=== PATIENT | female | born 1965 | race Caucasian/White ===

== ENCOUNTER 2017-03-01 13:15 | Emergency (ER) | payer OTHER ==
[2017-03-01 13:16] VITALS: BMI 33.3
--- NOTE | 2017-03-01 14:40 | RAD ---
HISTORY: COUGH/CONGESTION COMPARISON: 10/20/2012 TECHNIQUE: Chest PA and lateral FINDINGS: LUNGS: No active pulmonary disease. PLEURA: No significant pleural effusion identified. No pneumothorax apparent. CARDIOVASCULAR: Normal. OSSEOUS STRUCTURES: No significant abnormalities. VISUALIZED UPPER ABDOMEN: Normal. OTHER FINDINGS: None. IMPRESSION: No active disease.
--- NOTE | 2017-03-01 15:28 | C.PDOC ---
History Of Present Illness 52 y/o female presents to the ED with complains of cough, congestion with yellow sputum. Pt has chronic back pain and due to constant sneezing and coughing back pain is worse. Denies fever, chills, vomiting, weakness, numbness or any other complaints. Time Seen by Provider: 03/01/17 13:54 Chief Complaint (Nursing): Back Pain History Per: Patient History/Exam Limitations: no limitations Onset/Duration Of Symptoms: Days Current Symptoms Are (Timing): Still Present Quality Of Discomfort: "Pain" Severity: Moderate Previous Symptoms: Back Pain Associated Symptoms: None Recent travel outside of the [place]: No Past Medical History Reviewed: Historical Data, Nursing Documentation, Vital Signs Vital Signs: Last Vital Signs Temp 98.3 F 03/01/17 16:12 Pulse 83 03/01/17 16:12 Resp 18 03/01/17 16:12 BP 127/66 03/01/17 16:12 Pulse Ox 96 03/01/17 16:12 - Medical History PMH: Asthma, Back Problems, Diabetes, Pancreatitis Denies: Chronic Kidney Disease - [facility] Procedures DRAINAGE OF RIGHT BREAST, OPEN APPROACH (06/15/16) Family History: States: Unknown Family Hx - Social History Hx Tobacco Use: Yes Hx Alcohol Use: No Hx Substance Use: No - Immunization History Hx Tetanus Toxoid Vaccination: No Hx Influenza Vaccination: No Hx Pneumococcal Vaccination: No Review Of Systems Except As Marked, All Systems Reviewed And Found Negative. Constitutional: Negative for: Fever, Chills ENT: Positive for: Nose Congestion Respiratory: Positive for: Cough Musculoskeletal: Positive for: Back Pain Neurological: Negative for: Weakness, Numbness Physical Exam - Physical Exam Appears: Non-toxic, No Acute Distress Skin: Warm, Dry, No Rash Head: Atraumatic, Normacephalic Ear(s): Bilateral: Normal Nose: Normal Throat: Normal, No Erythema Neck: Normal, Normal ROM, Supple Chest: Symmetrical Cardiovascular: Rhythm Regular, No Murmur Respiratory: No Rales, No Rhonchi, Wheezing (diffuse expiratory) Back: Normal Inspection Extremity: Bilateral: Atraumatic Neurological/Psych: Oriented x3, Normal Motor, Normal Sensation ED Course And Treatment O2 Sat by Pulse Oximetry: 97 (room air) Pulse Ox Interpretation: Normal - Other Rad CXR X-Ray: Viewed By Me, Read By Radiologist Interpretation: Accession No. : [id number]. Patient Name / ID : KATALINA MAC / [id number]. Exam Date : 03/01/2017 14:09:12 ( Approved ). Study Comment : Sex / Age : F / 52Y. Creator : Austin Matta MD. Dictator : Austin Matta MD. Diabetologist : Ironing Machine Operator : Austin Matta MD. Approver2 : Report Date : 03/01/2017 14:38:39. My Comment : . HISTORY: COUGH/ CONGESTION. COMPARISON: 10/20/2012. TECHNIQUE: Chest PA and lateral. FINDINGS: LUNGS: No active pulmonary disease. PLEURA: No significant pleural effusion identified. No pneumothorax apparent. CARDIOVASCULAR: Normal. OSSEOUS STRUCTURES: No significant abnormalities. VISUALIZED UPPER ABDOMEN: Normal. OTHER FINDINGS: None. IMPRESSION: No active disease. Progress Note: CXR negative. Gave zithromax and toradol IM. On reassessment, patient is resting comfortably with no wheezing, chest pain, or retractions. Oxygen saturation and breath sounds have improved. Patient is alert and oriented x 3. Patient was advised to follow up with physician/clinic in 1-2 days and return to ED if symptoms worsen or persist. Disposition - Disposition Referrals: [facility] [Outside] [facility] at [facility] [Outside] Disposition: HOME/ ROUTINE Disposition Time: 15:48 Condition: STABLE Additional Instructions: Follow up with your PMD within 1-2 days. Return to ED if feel worse. Prescriptions: Brompheniramine/Pseudoephed/Dm [Bromfed Dm Cough 118 ml] 10 ml PO Q4 #300 ml Fluticasone Nasal [Flonase] 1 spr NS BID #1 spr oxyCODONE/Acetaminophen [Percocet 5/325 mg Tab] 1 tab PO QID PRN #20 tab PRN Reason: Pain Azithromycin [Zithromax] 250 mg PO DAILY #4 tab Instructions: Acute Bronchitis (ED), Back Pain (ED) Print Language: SRI LANKAN - Clinical Impression Clinical Impression: Low back pain, Bronchitis - PA / PERSONAL BANKING ASSISTANT / Resident Statement MD/DO has reviewed & agrees with the documentation as recorded. - Scribe Statement The provider has reviewed the documentation as recorded by the Scribe Nate Mendoza All medical record entries made by the Scribe were at my direction and personally dictated by me. I have reviewed the chart and agree that the record accurately reflects my personal performance of the history, physical exam, medical decision making, and the department course for this patient. I have also personally directed, reviewed, and agree with the discharge instructions and disposition.
[2017-03-01 16:14] VITALS: BP 127/66; PULSE 83; RESP 18; TEMP 98.3
[2017-03-01 22:55] VITALS: O2SAT 97
== END 2017-03-01 16:14 | disposition home or self-care (01) ==
LOC: C.ER 13:15
DX: M54.5 Low back pain (principal); J40 Bronchitis, not specified as acute or chronic
CPT/HCPCS: 71020; 96372; 99283; J1885

== ENCOUNTER 2017-05-01 19:22 | Emergency (ER) | payer OTHER ==
[2017-05-01 19:22] VITALS: BMI 33.3
[2017-05-01 19:48] VITALS: BP 121/85; PULSE 82; RESP 17; TEMP 98.4; O2SAT 98
--- NOTE | 2017-05-01 20:40 | C.PDOC ---
History Of Present Illness 52 year old female who presents to the ER with a h/o of chronic back pain c/o of exacerbation of same pain. Patient states she takes advil and aleve with no relief to symptoms; denies recent trauma, weakness, numbness, incontinence, dysuria, or hematuria. Patient is also requesting a refill of her metformin, last time taken was 4 days ago. Time Seen by Provider: 05/01/17 19:52 Chief Complaint (Nursing): Back Pain History Per: Patient History/Exam Limitations: no limitations Onset/Duration Of Symptoms: Days Current Symptoms Are (Timing): Still Present Quality Of Discomfort: Unable To Describe Previous Symptoms: Back Pain, Chronic Pain Associated Symptoms: None Recent travel outside of the [place]: No Past Medical History Reviewed: Historical Data, Nursing Documentation, Vital Signs Vital Signs: Last Vital Signs Temp 98.4 F 05/01/17 19:41 Pulse 82 05/01/17 19:41 Resp 17 05/01/17 19:41 BP 121/85 05/01/17 19:41 Pulse Ox 98 05/01/17 21:21 - Medical History PMH: Asthma, Back Problems, Diabetes, Pancreatitis Surgical History: No Surg Hx - [facility] Procedures DRAINAGE OF RIGHT BREAST, OPEN APPROACH (06/15/16) Family History: States: Unknown Family Hx - Social History Hx Tobacco Use: Yes Hx Alcohol Use: No Hx Substance Use: No - Immunization History Hx Tetanus Toxoid Vaccination: No Hx Influenza Vaccination: No Hx Pneumococcal Vaccination: No Review Of Systems Genitourinary: Negative for: Dysuria, Incontinence, Hematuria Musculoskeletal: Positive for: Back Pain Neurological: Negative for: Weakness, Numbness Physical Exam - Physical Exam Appears: Non-toxic Skin: Normal Color, Warm, Dry Head: Atraumatic, Normacephalic Eye(s): bilateral: Normal Inspection, EOMI Oral Mucosa: Moist Back: No Vertebral Tenderness, Paraspinal Tenderness (Lumbar/Thoracic diffusely) Neurological/Psych: Oriented x3, Normal Speech, Normal Cognition Gait: Steady ED Course And Treatment O2 Sat by Pulse Oximetry: 98 (Room air) Pulse Ox Interpretation: Normal Progress Note: Toradol IM and metformin PO ordered. On reassessment, patient is resting comfortably, with improvement of back pain. Patient remains afebrile, with no bony tenderness, extremity numbness or weakness, or abdominal pain. Patient is ambulatory in the emergency department with no signs of discomfort. Patient was advised to follow up with PMD in 1-2 days. Disposition - Disposition Referrals: [facility] at [facility] [Outside] Disposition: HOME/ ROUTINE Disposition Time: 20:38 Condition: STABLE Additional Instructions: Please follow up in clinic Return to ER if worse Prescriptions: Cyclobenzaprine [Cyclobenzaprine HCl] 10 mg PO HS #14 tab Ibuprofen [Motrin] 600 mg PO Q6H #30 tab Metformin HCl [Glucophage] 1,000 mg PO DAILY #10 tablet Instructions: Chronic Back Pain (ED) - Clinical Impression Clinical Impression: Chronic back pain, Encounter for medication review - Scribe Statement The provider has reviewed the documentation as recorded by the Scribe Lucas Payne All medical record entries made by the Scribe were at my direction and personally dictated by me. I have reviewed the chart and agree that the record accurately reflects my personal performance of the history, physical exam, medical decision making, and the department course for this patient. I have also personally directed, reviewed, and agree with the discharge instructions and disposition.
== END 2017-05-01 21:00 | disposition home or self-care (01) ==
LOC: C.ER 19:22 → SUPCPDRO 19:22 → C.ER 21:00
DX: M54.9 Dorsalgia, unspecified (principal); G89.29 Other chronic pain; E11.9 Type 2 diabetes mellitus without complications
CPT/HCPCS: 82948; 96372; 99283; J1885

== ENCOUNTER 2017-06-28 21:32 | Emergency (ER) | payer SELFPAY ==
[2017-06-28 21:33] VITALS: BMI 33.3
[2017-06-28 21:49] VITALS: BP 120/81; PULSE 90; TEMP 98.1; O2SAT 98
--- NOTE | 2017-06-28 21:58 | C.PDOC ---
History Of Present Illness 52 year old female who presents to the ER with history of chronic back pain complains of same typical back pain. Patient states she takes Advil with no relief ofsymptoms. Denies recent trauma, weakness, numbness, incontinence, dysuria, or hematuria. Patient is also requesting a refill of her metformin, last time taken was 3 days ago. Patient also reports cough and congestion today. Time Seen by Provider: 06/28/17 22:06 Chief Complaint (Nursing): Back Pain History Per: Patient History/Exam Limitations: no limitations Onset/Duration Of Symptoms: Days, Persistent Current Symptoms Are (Timing): Still Present Quality Of Discomfort: "Pain" Severity: Mild Previous Symptoms: Back Pain Associated Symptoms: denies: New Weakness, New Numbness Recent travel outside of the [place]: No Additional History Per: Patient Past Medical History Reviewed: Historical Data, Nursing Documentation, Vital Signs Vital Signs: Last Vital Signs Temp 98.1 F 06/28/17 21:44 Pulse 90 06/28/17 21:44 Resp 18 06/28/17 21:44 BP 120/81 06/28/17 21:44 Pulse Ox 98 06/28/17 22:10 - Medical History PMH: Asthma, Back Problems, Diabetes, Pancreatitis Denies: Chronic Kidney Disease - [facility] Procedures DRAINAGE OF RIGHT BREAST, OPEN APPROACH (06/15/16) Family History: States: Unknown Family Hx - Social History Hx Tobacco Use: Yes Hx Alcohol Use: No Hx Substance Use: No - Immunization History Hx Tetanus Toxoid Vaccination: No Hx Influenza Vaccination: No Hx Pneumococcal Vaccination: No Review Of Systems Except As Marked, All Systems Reviewed And Found Negative. Cardiovascular: Negative for: Chest Pain Respiratory: Positive for: Cough. Negative for: Shortness of Breath Gastrointestinal: Negative for: Abdominal Pain Genitourinary: Negative for: Dysuria, Incontinence, Hematuria Musculoskeletal: Positive for: Back Pain (Chronic) Neurological: Negative for: Weakness, Numbness, Headache, Dizziness Physical Exam - Physical Exam Additional Physical Exam Comments: Appears: Well Appearing, Non-toxic, No Acute Distress Skin: Warm, Dry, No Rash Head: Atraumatic, Normacephalic Eye(s): bilateral: Normal Inspection Oral Mucosa: Moist Neck: Normal ROM Chest: Symmetrical Cardiovascular: Rhythm Regular, No Murmur Respiratory: Normal Breath Sounds, No Rales, No Rhonchi, No Wheezing Back: normal inspection (no rash, no swelling), mild paralumbar tenderness, no vertebral tenderness, no pain with straight leg raise Extremity: Bilateral: Atraumatic, Normal Color and Temperature, Normal ROM Neurological/Psych: Oriented x3, Normal Speech Gait: Steady ED Course And Treatment O2 Sat by Pulse Oximetry: 98 (RA) Pulse Ox Interpretation: Normal Medical Decision Making Medical Decision Making: Impression: * chronic back pain Plans: * Toradol * glucOPHAGE Progress: patient has been seen in ED multiple times for back pain and medication refill. I explain to patient she needs to follow up in the clinic and cannot keep coming to ER for medication refill. Patient verbalized understanding. Patient remains afebrile, with no bony tenderness, extremity numbness or weakness, or abdominal pain. Patient is ambulatory in the emergency department with no signs of discomfort. Patient was advised to follow up with physician/ clinic in 1-2 days. Disposition Counseled Patient/Family Regarding: Need For Followup - Disposition Referrals: [facility] [Outside] Disposition: HOME/ ROUTINE Disposition Time: 21:58 Condition: STABLE Additional Instructions: Vaya a moore mdico o la clnica en 2-5 ivveros sin falta, para mas evaluacin. Ruth los medicamentos mishel indicado. Volver a la lesly de emergencia en cualquier momento si los sntomas persisten o empeoran. Prescriptions: Cyclobenzaprine [Cyclobenzaprine HCl] 10 mg PO TID #21 tab MetFORMIN [glucoPHAGE] 1,000 mg PO BID #20 tab Naproxen [Naprosyn] 1 tab PO BID PRN #25 tab PRN Reason: Pain Instructions: Back Pain (ED), Medicine Refill (ED) Forms: [employer] (Yoruba) Print Language: SWEDISH - POA Present On Arrival: None - Clinical Impression Clinical Impression: Thoracic back pain, Low back pain, Medicine refill - Scribe Statement The provider has reviewed the documentation as recorded by the Scribney gates All medical record entries made by the Scribe were at my direction and personally dictated by me. I have reviewed the chart and agree that the record accurately reflects my personal performance of the history, physical exam, medical decision making, and the department course for this patient. I have also personally directed, reviewed, and agree with the discharge instructions and disposition.
[2017-06-28 22:30] VITALS: RESP 20
== END 2017-06-28 22:29 | disposition home or self-care (01) ==
LOC: C.ER 21:32
DX: M54.6 Pain in thoracic spine (principal); M54.5 Low back pain; Z76.0 Encounter for issue of repeat prescription; E11.9 Type 2 diabetes mellitus without complications
CPT/HCPCS: 96372; 99283; J1885

== ENCOUNTER 2018-01-06 19:32 | Emergency (ER) | payer SELFPAY ==
[2018-01-06 19:32] VITALS: BMI 33.3
[2018-01-06 19:47] VITALS: BP 112/80; PULSE 100; RESP 18; TEMP 97.6; O2SAT 100
--- NOTE | 2018-01-06 20:08 | C.PDOC ---
History Of Present Illness 52 year old female presents to the emergency department with a past medical history of chronic back pain, complaining of exacerbation of back pain after doing house chores yesterday. Patient reports the pain is located at her lower back, for which she took Motrin which provided minimal relief. 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) Past Medical History Reviewed: Historical Data, Nursing Documentation, Vital Signs Vital Signs: Last Vital Signs Temp 97.6 F 01/06/18 19:41 Pulse 100 H 01/06/18 19:41 Resp 18 01/06/18 19:41 BP 112/80 01/06/18 19:41 Pulse Ox 100 01/06/18 21:20 - Medical History PMH: Asthma, Back Problems, Diabetes, Pancreatitis Denies: Chronic Kidney Disease Surgical History: No Surg Hx - [facility] Procedures DRAINAGE OF RIGHT BREAST, OPEN APPROACH (06/15/16) Family History: States: No Known Family Hx - Social History Hx Tobacco Use: Yes Hx Alcohol Use: No Hx Substance Use: No - Immunization History Hx Tetanus Toxoid Vaccination: No Hx Influenza Vaccination: No Hx Pneumococcal Vaccination: No Review Of Systems Except As Marked, All Systems Reviewed And Found Negative. Genitourinary: Negative for: Dysuria Musculoskeletal: Positive for: Back Pain Neurological: Negative for: Weakness, Numbness Physical Exam - Physical Exam Appears: Well, Non-toxic Skin: Normal Color Head: Atraumatic, Normacephalic Eye(s): bilateral: Normal Inspection Ear(s): Bilateral: Normal Neck: Normal, Supple Respiratory: Normal Breath Sounds Gastrointestinal/Abdominal: Normal Exam, Soft, No Tenderness Back: No CVA Tenderness, No Vertebral Tenderness, Other (lumbar tenderness) Extremity: Normal ROM Extremity: Bilateral: Other (straight leg raises negative) Neurological/Psych: Oriented x3, Normal Speech, Normal Cognition, Normal Motor, Normal Sensation Gait: Steady ED Course And Treatment O2 Sat by Pulse Oximetry: 100 (RA) Pulse Ox Interpretation: Normal Progress Note: Patient administered Toradol 30mg IM and Flexeril 10mg PO, with some improvement of pain noticed. Disposition Counseled Patient/Family Regarding: Diagnosis, Need For Followup, Rx Given - Disposition Referrals: [facility] [Outside] Disposition: HOME/ ROUTINE Disposition Time: 20:08 Condition: STABLE Additional Instructions: Please follw up in clinic or with PMD continue motrin at home Take muscle relaxer as prescribed Return to ER if worse Prescriptions: Cyclobenzaprine [Cyclobenzaprine HCl] 10 mg PO HS #10 tab Ibuprofen [Motrin] 600 mg PO Q6H #20 tab Instructions: Low Back Pain (DC) Forms: [employer] (Polish) - Clinical Impression Clinical Impression: Back pain, chronic, Muscle strain - PA / FINANCING ANALYST / Resident Statement MD/DO has reviewed & agrees with the documentation as recorded. - Scribe Statement The provider has reviewed the documentation as recorded by the Scribe (Gregg Doll) All medical record entries made by the Scribe were at my direction and personally dictated by me. I have reviewed the chart and agree that the record accurately reflects my personal performance of the history, physical exam, medical decision making, and the department course for this patient. I have also personally directed, reviewed, and agree with the discharge instructions and disposition.
== END 2018-01-06 20:25 | disposition home or self-care (01) ==
LOC: C.ER 19:32
DX: S39.012A Strain of muscle, fascia and tendon of lower back, initial encounter (principal); X50.0XXA Overexertion from strenuous movement or load, initial encounter; Y93.E9 Activity, other interior property and clothing maintenance; Y92.009 Unspecified place in unspecified non-institutional (private) residence as the place of occurrence of the external cause
CPT/HCPCS: 96372; 99283; J1885

== ENCOUNTER 2018-03-01 11:12 | Emergency (ER) | payer OTHER ==
[2018-03-01 11:12] VITALS: BMI 33.3
[2018-03-01 12:14] LABS: HCG,QUALITATIVE URINE NEGATIVE (NEGATIVE)
[2018-03-01 12:23] LABS: SQUAMOUS EPITHIAL 5 /hpf (0-5); URINE BILIRUBIN NEGATIVE (NEGATIVE); URINE BLOOD NEGATIVE (NEGATIVE); URINE CLARITY Hazy (Clear); URINE COLOR Yellow (YELLOW); URINE GLUCOSE (UA) 3+ mg/dL (Normal); URINE LEUKOCYTE ESTERASE NEG Leu/uL (Negative); URINE PROTEIN NEGATIVE (NEGATIVE); URINE UROBILINOGEN NORMAL mg/dL (0.2-1.0)
[2018-03-01] MEDS ORDERED: Sodium Chloride 0.9% 1,000 ML IV ONE (12:55)
[2018-03-01] MEDS ORDERED: (Novolin R) Insulin Human Regular 100 units/ml vial IV STA (12:56)
[2018-03-01] MEDS ORDERED: (Novolin R) Insulin Human Regular 100 units/ml vial ONE (13:08)
[2018-03-01] MEDS ORDERED: Sodium Chloride 0.9% 1,000 ML ONE (13:08)
[2018-03-01 13:34] LABS: BASO % 0.4 % (0.0-2.0); EOS # 0.1 K/uL (0.0-0.7); EOS % 1.4 % (0.0-4.0); HEMOGLOBIN 14.7 g/dL (11.0-16.0); LYMPH # 4.3 K/uL (1.0-4.3); LYMPH % 47.5 % (20.0-40.0); MEAN CELL VOLUME 86.6 fL (81.0-99.0); MEAN CORPUSCULAR HEMOGLOBIN 30.5 pg (27.0-31.0); MEAN CORPUSCULAR HGB CONC 35.3 g/dL (33.0-37.0); MEAN PLATELET VOLUME 7.9 fL (7.2-11.7); MONO # 0.6 K/uL (0.0-0.8); MONO % 6.4 % (0.0-10.0); NEUT # 4.1 K/uL (1.8-7.0); NEUT % 44.3 % (50.0-75.0); RBC 4.8 Mil/uL (3.80-5.20); RED CELL DISTRIBUTION WIDTH 13.8 % (11.5-14.5); WHITE BLOOD COUNT 9.2 K/uL (4.8-10.8)
[2018-03-01 13:50] LABS: ALB/GLOB RATIO 1.2 (1.0-2.1); ALBUMIN 3.8 g/dL (3.5-5.0); ALT/SGPT 23 U/L (9-52); AST/SGOT 18 U/L (14-36); BLOOD UREA NITROGEN 13 mg/dL (7-17); CALCIUM 9.6 mg/dl (8.6-10.4); GFR AFRICAN-AMERICAN > 60; GFR NON-AFRICAN AMERICAN > 60; LIPASE 436 U/L (23-300)
[2018-03-01 14:24] VITALS: BP 113/75; PULSE 77; RESP 18; TEMP 98.9
[2018-03-01 14:27] VITALS: O2SAT 98
--- NOTE | 2018-03-01 14:27 | C.PDOC ---
History Of Present Illness 53 y/o female presents to the ED complaining of chronic low back pain, worsening over the past 4 days. Patient has many prior presentations to this ED for the same. Also complaining of crampy lower abdominal discomfort. Patient states she ran out of her glyburide and metformin, last doses yesterday. She notes her average finger stick at home is around 250. Also complains of constipation. Time Seen by Provider: 03/01/18 12:42 Chief Complaint (Nursing): Female Genitourinary History Per: Patient History/Exam Limitations: no limitations Onset/Duration Of Symptoms: Days Current Symptoms Are (Timing): Still Present Past Medical History Reviewed: Historical Data, Nursing Documentation, Vital Signs Vital Signs: Last Vital Signs Temp 98.9 F 03/01/18 14:15 Pulse 77 03/01/18 14:15 Resp 18 03/01/18 14:15 BP 113/75 03/01/18 14:15 Pulse Ox 98 03/01/18 14:35 - Medical History PMH: Asthma, Back Problems, Diabetes, Pancreatitis Denies: Chronic Kidney Disease - [facility] Procedures DRAINAGE OF RIGHT BREAST, OPEN APPROACH (06/15/16) Family History: States: Unknown Family Hx - Social History Hx Tobacco Use: Yes Hx Alcohol Use: No Hx Substance Use: No - Immunization History Hx Tetanus Toxoid Vaccination: No Hx Influenza Vaccination: No Hx Pneumococcal Vaccination: No Review Of Systems Except As Marked, All Systems Reviewed And Found Negative. Gastrointestinal: Positive for: Abdominal Pain, Constipation Genitourinary: Negative for: Dysuria, Frequency, Hematuria Musculoskeletal: Positive for: Back Pain Neurological: Negative for: Weakness, Numbness Physical Exam - Physical Exam Appears: Non-toxic, No Acute Distress, Other (Obese female) Skin: Normal Color, Warm, Dry Head: Atraumatic, Normacephalic Eye(s): bilateral: Normal Inspection, PERRL, EOMI Oral Mucosa: Moist Cardiovascular: Rhythm Regular, No Murmur Respiratory: Normal Breath Sounds, No Rales, No Rhonchi, No Wheezing Gastrointestinal/Abdominal: Bowel Sounds (Lower abdomen dull to percussion), Soft, No Tenderness (to epigastrium) Extremity: Bilateral: Atraumatic, Normal Color And Temperature, Normal ROM Neurological/Psych: Oriented x3, Normal Speech, Other (No focal deficits) ED Course And Treatment - Laboratory Results Result Diagrams: 03/01/18 13:19 03/01/18 13:19 Lab Interpretation: Normal (lipase 436, A1C 9.8 H) O2 Sat by Pulse Oximetry: 98 (RA) Pulse Ox Interpretation: Normal - Radiology CXR: Interpreted by Me CXR Interpretation: Yes: No Acute Disease - Other Rad abd x 2 X-Ray: Interpreted by Me (+FOS) Progress Note: toradol, IVF Reevaluation Time: 14:30 Reassessment Condition: Improved Medical Decision Making Medical Decision Making: moderatly well controlled DM, A1C 9.8 H (avg glu approx 235) mild chronic pancreatitis, lipase 435, no epigastric pain, eating and drinking well no adm necessary med refill refill and increase glyburide XR from 2.5-10 mg daily Refill metformin 1000 mg daily. crampy lower belly discomfort abd x 3 views, +FOS constipation prob related to uncontrolled DM and poor diet. laxatives educated. Disposition Doctor Will See Patient In The: Office Counseled Patient/Family Regarding: Studies Performed, Diagnosis - Disposition Referrals: [facility] [Outside] [facility] [Outside] [facility] [Outside] Disposition: HOME/ ROUTINE Disposition Time: 14:32 Condition: GOOD Additional Instructions: Estrenemiento: shaheen un purgante ahora jaclyn botella de Citr[employer] de Magnesio entero re-evalua moore molestia del abdomen despues de usar el kimberley 2-3 veces repita mishel necessario Cambios de dieta y ejercisio Diabetes: Hgb A1C 9.8 (promedio de glucosa de 235) muy justin. Pancreatitis Chronico: Cambios de dieta Dolor del espalda bolsas de HIELO 1/2 hora cada hora. NunCA nada caliente! sigue Ibuprofeno 400-600 mg cada 6 horas mishel necessario Relleno de medicamentos Glyburide XL AUMENTADA a 10 mg diario Metformina 1000 mg dos veces al vel con comidas. Sigue en la [facility] (shlomo) ANTES que se acaban onelia medicamentos! Prescriptions: Glipizide [Glipizide ER] 10 mg PO DAILY #30 tab.er.24 MetFORMIN [glucoPHAGE] 1,000 mg PO BID #60 tab Instructions: Low Back Pain in Adults, Constipation in Adults, Chronic Pancreatitis, Gas and Bloating Forms: [facility] (Lithuanian) Print Language: PASHTO - Clinical Impression Clinical Impression: Medication refill, Chronic lower back pain, Abdominal bloating with cramps - Scribe Statement The provider has reviewed the documentation as recorded by the Ramila Toro Provider Attestation: All medical record entries made by the Ramila were at my direction and personally dictated by me. I have reviewed the chart and agree that the record accurately reflects my personal performance of the history, physical exam, medical decision making, and the department course for this patient. I have also personally directed, reviewed, and agree with the discharge instructions and disposition.
--- NOTE | 2018-03-01 14:29 | RAD ---
PROCEDURE: Radiographs of the chest and abdomen (obstructive series) HISTORY: abd pain COMPARISON: No prior. TECHNIQUE: AP radiograph of the chest, with upright and supine radiographs of the abdomen. FINDINGS: CHEST: Lungs: Clear. Cardiovascular: Normal size heart. No pulmonary vascular congestion. Pleura: No pleural fluid. No pneumothorax. Other findings: None. ABDOMEN AND PELVIS: Bowel: Unremarkable bowel gas pattern. No evidence of mechanical obstruction. Moderate fecal loading is seen throughout various large-bowel segments. No abnormal intra-abdominal calcifications are identified. Free air: None. Bones: Unremarkable. Other findings: None. IMPRESSION: Unremarkable radiographs of chest and abdomen. No evidence of mechanical bowel obstruction.
== END 2018-03-01 14:55 | disposition home or self-care (01) ==
LOC: C.ER 11:12
DX: Z76.0 Encounter for issue of repeat prescription (principal); G89.29 Other chronic pain; M54.5 Low back pain; R14.0 Abdominal distension (gaseous); E11.9 Type 2 diabetes mellitus without complications; Z72.0 Tobacco use
CPT/HCPCS: 74022; 80053; 81001; 82948; 83036; 83690; 84703; 85025; 96361; 96374; 96375; 99285; J1885; J7040